=== PATIENT | female | born 1995 | race American Indian/Alaskan Native ===

== ENCOUNTER 2024-10-15 09:45 | Inpatient (IN) | payer OTHER, MEDICAID ==
[2024-10-15] MEDS ORDERED: Citric Acid/Sodium Citrate Solution 30 ML Cup PO ONE (09:50)
[2024-10-15] MEDS ORDERED: Sodium Chloride 0.9% 2.5 ML Syringe FLUSH PRN ×2 (09:50→12:41)
[2024-10-15] MEDS ORDERED: Azithromycin 500 MG in Sodium Chloride 0.9% 250 ML IV ONE (09:50)
[2024-10-15] MEDS ORDERED: Sodium Chloride 0.9% 10 ML Syringe FLUSH PRN ×2 (09:50→12:41)
[2024-10-15] MEDS ORDERED: ceFAZolin 2 GM in Sodium Chloride 0.9% 50 ML IV ONE (09:50)
[2024-10-15] MEDS ORDERED: Sodium Chloride 0.9% 20 ML SDV IV PRN (09:50)
[2024-10-15] MEDS ORDERED: Lactated Ringers 1,000 ML IV SCH (10:00)
[2024-10-15] MEDS ORDERED: Oxytocin/0.9 % Sodium Chloride 30 UNIT/500 ML BAG IV SCH ×2 (10:00→12:45)
[2024-10-15] MEDS ORDERED: Ondansetron 4 MG/2 ML SDV ONE (10:24)
[2024-10-15] MEDS ORDERED: Ropivacaine 0.5% 5 MG/ML 30 ML SDV ONE (10:24)
[2024-10-15] MEDS ORDERED: Oxytocin 10 Units/1 ML SDV ONE (10:24)
[2024-10-15] MEDS ORDERED: fentaNYL 100 MCG/2 ML SDV ONE (10:24)
[2024-10-15] MEDS ORDERED: Morphine PF 10 MG/10 ML SDV ONE (10:24)
[2024-10-15] MEDS ORDERED: ceFAZolin 1 GM Vial ONE (10:24)
[2024-10-15] MEDS ORDERED: Ketorolac 30 MG/ML SDV ONE (10:24)
[2024-10-15] MEDS ORDERED: Bupivacaine 0.25% 30 ML SDV ONE (10:24)
[2024-10-15] MEDS ORDERED: EPINEPHrine 1 MG/1 ML Amp ONE (10:24)
[2024-10-15 10:25] LABS: HEMATOCRIT 38.4 % (37.0-47.0); HEMOGLOBIN 13.1 g/dL (12.0-16.0); MEAN CORPUSCULAR HEMOGLOBIN 30.6 pg (28.0-32.0); MEAN CORPUSCULAR HGB CONC 34.1 g/dL (32.0-36.0); MEAN CORPUSCULAR VOLUME 89.7 fL (83.0-99.0); PLATELET COUNT,PLT 254 K/uL (150-400); RED BLOOD CELL COUNT 4.28 M/uL (4.10-5.30); WHITE BLOOD CELL COUNT,WBC 9.65 K/uL (3.9-11.3)
[2024-10-15] MEDS ORDERED: Phenylephrine HCl In 0.9% NaCl 1 MG/10 ML Syringe ONE ×2 (10:38→11:56)
[2024-10-15] MEDS ORDERED: fentaNYL 50 MCG/ML SDV IVPUSH PRN (11:08)
[2024-10-15] MEDS ORDERED: Acetaminophen/oxyCODONE 325-5 MG Tab PO PRN (11:08)
[2024-10-15] MEDS ORDERED: Metoclopramide 10 MG/2 ML SDV IVPUSH PRN (11:08)
[2024-10-15] MEDS ORDERED: fentaNYL 100 MCG/2 ML SDV IVPUSH PRN (11:08)
[2024-10-15] MEDS ORDERED: Ondansetron 4 MG/2 ML SDV IVPUSH PRN ×3 (11:08→12:41)
[2024-10-15] MEDS ORDERED: Phenylephrine HCl In 0.9% NaCl 1 MG/10 ML Syringe IVPUSH PRN (11:08)
[2024-10-15] MEDS ORDERED: Naloxone 0.4 MG/ML SDV IVPUSH PRN (11:08)
[2024-10-15] MEDS ORDERED: Nalbuphine 10 MG/1 ML Vial IVPUSH PRN (11:08)
[2024-10-15] MEDS ORDERED: Morphine 2 MG/ML SYRINGE IVPUSH PRN (11:08)
[2024-10-15] MEDS ORDERED: Albuterol 0.083% 2.5 MG/3 ML Neb Soln NEB PRN (11:08)
[2024-10-15] MEDS ORDERED: HYDROmorphone 1 MG/ML Syringe IVPUSH PRN (11:08)
[2024-10-15] MEDS ORDERED: ePHEDrine 50 MG/ML SDV IM PRN (11:08)
[2024-10-15] MEDS ORDERED: Azithromycin 500 MG Vial ONE (11:22)
[2024-10-15] MEDS ORDERED: Tranexamic Acid 1,000 MG/10 ML Vial ONE (11:44)
[2024-10-15] MEDS ORDERED: Diphtheria,Pertussis(Acell),Tetanus Vaccine 0.5 ML Syringe IM ONE (12:41)
[2024-10-15] MEDS ORDERED: Methylergonovine 0.2 MG/1 ML Amp IM ONE (12:41)
[2024-10-15] MEDS ORDERED: oxyCODONE 5 MG Tab PO PRN (12:41)
[2024-10-15] MEDS ORDERED: Misoprostol 200 MCG Tab RECTAL PRN (12:41)
[2024-10-15] MEDS ORDERED: Carboprost Tromethamine 250 MCG/1 mL Vial IM PRN (12:41)
[2024-10-15] MEDS ORDERED: Measles, Mumps & Rubella Vaccine 0.5 ML SDV SUBCUT ONE (12:41)
[2024-10-15] MEDS ORDERED: Acetaminophen 500 MG Tab PO SCH (12:45)
[2024-10-15 12:50] LABS: PH,UMBILICAL ARTERIAL 7.1 (7.18-7.38)
[2024-10-15 12:51] LABS: PH,UMBILICAL VENOUS 7.14 (7.25-7.45)
[2024-10-15] MEDS: Acetaminophen 1,000 MG in Premix Bag 1 BAG IV SCH (14:35)
[2024-10-15 16:35] LABS: BASOPHILS ABSOLUTE AUTO 0.01 K/uL (0.00-0.20); BASOPHILS PERCENT AUTO 0.1 % (0.0-1.0); HEMATOCRIT 36.1 % (37.0-47.0); HEMOGLOBIN 12.2 g/dL (12.0-16.0); IMMATURE GRAN ABSOLUTE AUTO 0.05 K/uL (0.00-0.05); IMMATURE GRAN PERCENT AUTO 0.3 % (0.0-0.4); LYMPHOCYTES ABSOLUTE AUTO 0.58 K/uL (1.00-4.80); LYMPHOCYTES PERCENT AUTO 3.7 % (24.0-44.0); MEAN CORPUSCULAR HEMOGLOBIN 30.2 pg (28.0-32.0); MEAN CORPUSCULAR HGB CONC 33.8 g/dL (32.0-36.0); MEAN CORPUSCULAR VOLUME 89.4 fL (83.0-99.0); MEAN PLATELET VOLUME 10.2 fL (9.4-12.3); MONOCYTES ABSOLUTE AUTO 0.17 K/uL (0.00-0.80); MONOCYTES PERCENT AUTO 1.1 % (0.0-8.0); NEUTROPHILS ABSOLUTE AUTO 15.07 K/uL (1.80-7.70); NEUTROPHILS PERCENT AUTO 94.8 % (41.0-71.0); PLATELET COUNT,PLT 246 K/uL (150-400); RED BLOOD CELL COUNT 4.04 M/uL (4.10-5.30); WHITE BLOOD CELL COUNT,WBC 15.88 K/uL (3.9-11.3)
[2024-10-15 16:59] LABS: A/G RATIO 0.6 (0.9-1.6); ALBUMIN 2.3 g/dL (3.4-5.0); BILIRUBIN TOTAL 0.2 mg/dL (0.2-1.0); CALCIUM 8.2 mg/dL (8.5-10.1); CARBON DIOXIDE,CO2 21.9 mmol/L (21.0-32.0); CREATININE 0.7 mg/dL (0.6-1.0); EST CRCL DRUG DOSING (CG) 105.74 mL/min; POTASSIUM,K 3.9 mmol/L (3.5-5.1); PROTEIN TOTAL,TP 5.9 g/dL (6.4-8.2)
[2024-10-15] MEDS: diphenhydrAMINE 50 MG/ML SDV IVPUSH PRN (17:44)
[2024-10-15] MEDS: Ketorolac 30 MG/ML SDV IVPUSH SCH (17:49)
[2024-10-15] MEDS: Docusate Sodium 100 MG Cap PO SCH (20:09)
[2024-10-15] MEDS: Famotidine 20 MG Tab PO SCH (21:41)
[2024-10-15] MEDS: Escitalopram 10 MG Tab PO SCH (21:42)
[2024-10-16] MEDS: Ketorolac 30 MG/ML SDV IVPUSH SCH (00:52)
[2024-10-16 06:11] LABS: BASOPHILS ABSOLUTE AUTO 0.01 K/uL (0.00-0.20); BASOPHILS PERCENT AUTO 0.1 % (0.0-1.0); HEMATOCRIT 36.3 % (37.0-47.0); HEMOGLOBIN 12.2 g/dL (12.0-16.0); IMMATURE GRAN ABSOLUTE AUTO 0.03 K/uL (0.00-0.05); IMMATURE GRAN PERCENT AUTO 0.2 % (0.0-0.4); LYMPHOCYTES ABSOLUTE AUTO 1.95 K/uL (1.00-4.80); LYMPHOCYTES PERCENT AUTO 13.7 % (24.0-44.0); MEAN CORPUSCULAR HEMOGLOBIN 30.4 pg (28.0-32.0); MEAN CORPUSCULAR HGB CONC 33.6 g/dL (32.0-36.0); MEAN CORPUSCULAR VOLUME 90.5 fL (83.0-99.0); MEAN PLATELET VOLUME 10.6 fL (9.4-12.3); MONOCYTES ABSOLUTE AUTO 0.93 K/uL (0.00-0.80); MONOCYTES PERCENT AUTO 6.5 % (0.0-8.0); NEUTROPHILS ABSOLUTE AUTO 11.28 K/uL (1.80-7.70); NEUTROPHILS PERCENT AUTO 79.5 % (41.0-71.0); PLATELET COUNT,PLT 234 K/uL (150-400); RED BLOOD CELL COUNT 4.01 M/uL (4.10-5.30)
[2024-10-16] MEDS: Polyethylene Glycol 3350 Powder 17 GM Packet PO SCH (08:51)
[2024-10-16] MEDS: Bisacodyl 5 MG Tab PO SCH (09:30)
[2024-10-16] MEDS ORDERED: oxyCODONE 5 MG Tab PO PRN (12:41)
[2024-10-16] MEDS ORDERED: Ibuprofen 800 MG Tab PO SCH (12:45)
[2024-10-16] MEDS ORDERED: Acetaminophen 500 MG Tab PO SCH (14:00)
[2024-10-16] MEDS: Acetaminophen 500 MG Tab PO SCH (17:41)
[2024-10-16] MEDS: Ibuprofen 800 MG Tab PO SCH (21:09)
[2024-10-16] MEDS: Escitalopram 10 MG Tab PO ONE (22:10)
[2024-10-17] MEDS: Lanolin 100% Cream 7 GM Tube TOP PRN (09:12)
[2024-10-17] MEDS: Escitalopram 10 MG Tab PO SCH (21:45)
== END 2024-10-18 14:55 | disposition home or self-care (01) | DRG 788 ==
LOC: MW.OB 09:45
PROVIDERS: ADMIT Obstetrics & Gynecology; ATTEND Obstetrics & Gynecology
PROC: 10D00Z1 Extraction of Products of Conception, Low, Open Approach (ICD-10-PCS; principal; 2024-10-15 10:30)
DX: O34.211 Maternal care for low transverse scar from previous cesarean delivery (principal); Z37.0 Single live birth; O99.214 Obesity complicating childbirth; O99.344 Other mental disorders complicating childbirth; F32.A Depression, unspecified; O13.4 Gestational [pregnancy-induced] hypertension without significant proteinuria, complicating childbirth; Z3A.38 38 weeks gestation of pregnancy
CPT/HCPCS: 36415; 59025; 80053; 82803; 85025; 85027; 86592; 86850; 86900; 86901; A9270-GY; J0131; J0456; J0665; J0690; J1100; J1200; J1885; J2274; J2371; J2405; J2590; J2795; J3010